=== PATIENT | male | born 2005 | race Caucasian/White ===

== ENCOUNTER 2024-03-26 16:45 | Emergency (ER) | payer OTHER ==
[~2024-03-26] VITALS: Ht 177.8 cm; Wt 61.4 kg
[2024-03-26 16:53] VITALS: TEMP 99; O2SAT 98
[2024-03-26] MEDS: HYDROCODONE/ACETAMINOPHEN 5/325MG TABLET PO ONE (18:15)
[2024-03-26] MEDS: TETANUS, DIPHTHERIA, PERTUSSIS VAC/PF 0.5ML (>10YR OLD) IM ONE (18:16)
[2024-03-26 20:13] VITALS: BP 124/71; PULSE 114; RESP 18
[2024-03-26] MEDS: KETOROLAC 30MG/ML VIAL IM ONE (20:13)
[2024-03-26] MEDS ORDERED: IBUP-2029 MT (21:41)
[2024-03-26] MEDS ORDERED: HYDR-4001 MT (21:41)
[2024-03-26] MEDS ORDERED: BO1 TP (21:41)
== END 2024-03-26 22:01 | disposition home or self-care (01) ==
LOC: ER 16:45
DX: S02.611A Fracture of condylar process of right mandible, initial encounter for closed fracture (principal); J45.909 Unspecified asthma, uncomplicated; Y08.89XA Assault by other specified means, initial encounter; Y93.89 Activity, other specified; Y92.89 Other specified places as the place of occurrence of the external cause; Y99.8 Other external cause status
CPT/HCPCS: 99285; 70450; 71045; 70486; 72125; 72128; 72131; 90715; 90471; 96372; J1885